=== PATIENT | male | born 1980 | race Hispanic/Latino ===

== ENCOUNTER 2019-08-01 14:33 | Emergency (ER) | payer SELFPAY ==
[~2019-08-01] VITALS: Ht 182.9 cm; Wt 88.0 kg
[2019-08-01 15:04] LABS: HEMATOCRIT 43.8 % (39.0-50.0); HEMOGLOBIN 14.8 g/dl (14.0-18.0); IMMATURE GRANULOCYTES 0.1 % (0.0-5.0); MEAN CELL VOLUME 95.4 fL CALC (80.0-100.0); MEAN CORPUSCULAR HGB 32.2 pG CALC (26.0-32.0); MEAN CORPUSCULAR HGB CONC 33.8 g/L CALC (32.0-36.0); NEUT# 2.93 thou/uL (1.82-7.42); RED BLOOD COUNT 4.59 mill/uL (4.70-6.10); RED CELL DISTRI WIDTH 12.5 % (11.5-15.5)
[2019-08-01 15:24] LABS: ALBUMIN 4.5 g/dL (3.2-5.0); ALKALINE PHOSPHATASE 61 u/l (38-126); ANION GAP 13 (6-22 (CALC)); BILIRUBIN, TOTAL 0.3 mg/dL (0.0-1.4); BUN 17 mg/dL (9-20); BUN/CREATININE RATIO 18 (12-20 (CALC)); CARBON DIOXIDE 27 mmol/l (22-30); CHLORIDE 105 mmol/l (95-108); CREATININE 0.9 mg/dL (0.7-1.3); GFR > 60 ML/MIN (>=60 (CALC)); GFR FOR AFR.AMER. > 60 ML/MIN (>=60 (CALC)); LIPASE 56 u/l (23-300); POTASSIUM 4.4 mmol/l (3.5-5.1); SGOT/AST 31 u/l (17-59); SODIUM 140 mmol/l (137-146); TOTAL PROTEIN 7.8 g/dL (6.3-8.2)
[2019-08-01 16:21] LABS: URINE BILIRUBIN - DIPSTICK NEGATIVE (NEGATIVE); URINE BLOOD DIPSTICK NEGATIVE (NEGATIVE); URINE COLOR YELLOW; URINE GLUCOSE - DIPSTICK NEGATIVE (NEGATIVE); URINE KETONE NEGATIVE (NEGATIVE); URINE LEUK ESTERASE NEGATIVE (NEGATIVE); URINE NITRITE - DIPSTICK NEGATIVE (Negative); URINE PROTEIN - DIPSTICK NEGATIVE (NEG-TRACE); URINE SPECIFIC GRAVITY 1.025; URINE UROBILINOGEN - DIPSTICK 0.2 E.U./dL (0.2)
[2019-08-01] MEDS ORDERED: VOLTAREN1%GEL TOP (17:27)
[2019-08-01] MEDS ORDERED: CYCLOBENZAPR5 MG PO (17:27)
[2019-08-01 17:35] VITALS: BP 123/74
== END 2019-08-01 17:47 | disposition home or self-care (01) | DRG 552 ==
LOC: ED 14:33
PROVIDERS: Family Medicine
DX: M62.830 Muscle spasm of back (principal)

== ENCOUNTER 2022-03-18 20:39 | Emergency (ER) | payer BC ==
[~2022-03-18] VITALS: Ht 182.9 cm; Wt 95.0 kg
[~2022-03-18 20:39] MED LIST: CYCLOBENZAPR5 MG PO; VOLTAREN1%GEL TOP
[2022-03-18 20:53] VITALS: BP 143/88
[2022-03-18 21:01] VITALS: BP 136/84
[2022-03-18] MEDS ORDERED: GENTAMICIN SULF5 ML OU (21:04)
[2022-03-18 21:15] VITALS: BP 132/86
== END 2022-03-18 21:22 | disposition home or self-care (01) | DRG 918 ==
LOC: ED 20:39
DX: T54.3X1A Toxic effect of corrosive alkalis and alkali-like substances, accidental (unintentional), initial encounter (principal); T26.62XA Corrosion of cornea and conjunctival sac, left eye, initial encounter; T26.61XA Corrosion of cornea and conjunctival sac, right eye, initial encounter; Y93.E9 Activity, other interior property and clothing maintenance; Y92.009 Unspecified place in unspecified non-institutional (private) residence as the place of occurrence of the external cause

== ENCOUNTER 2022-06-26 07:30 | Emergency (ER) | payer BC ==
[~2022-06-26] VITALS: Ht 182.9 cm; Wt 99.7 kg
[~2022-06-26 07:30] MED LIST changes: +GENTAMICIN SULF5 ML OU
[2022-06-26 07:36] VITALS: BP 134/87
[2022-06-26 09:01] VITALS: BP 147/95
[2022-06-26 09:11] VITALS: BP 147/95
== END 2022-06-26 09:20 | disposition home or self-care (01) | DRG 392 ==
LOC: ED 07:30
DX: K59.00 Constipation, unspecified (principal)